=== PATIENT | male | born 1980 | race Hispanic/Latino ===

== ENCOUNTER 2023-08-21 16:40 | Emergency (ER) | payer SELFPAY ==
[2023-08-21] MEDS ORDERED: Lidocaine 1% PF 5 ML VIAL ONE (19:27)
[2023-08-21] MEDS ORDERED: Bacitracin 1 PK ONE (20:47)
== END 2023-08-21 20:51 | disposition home or self-care (01) ==
LOC: ERS 16:40
DX: S61.012A Laceration without foreign body of left thumb without damage to nail, initial encounter (principal); W26.0XXA Contact with knife, initial encounter
CPT/HCPCS: 12002; 99283

== ENCOUNTER 2023-09-04 17:08 | Emergency (ER) | payer SELFPAY | END 2023-09-04 18:13 | disposition home or self-care (01) | LOC: ERS 17:08 | DX: S61.012D Laceration without foreign body of left thumb without damage to nail, subsequent encounter (principal); W26.0XXD Contact with knife, subsequent encounter ==